=== PATIENT | female | born 1965 | race Caucasian/White ===

== ENCOUNTER 2016-10-27 10:15 | Outpatient (CLI) | payer BC ==
[2016-10-27 10:44] LABS: BASOPHILS % (AUTO) 0.5 % (0.0-2.0); DIFF TOTAL % 100 %; EOSINOPHILS % (AUTO) 0.3 % (0.0-6.0); HEMATOCRIT 50 % (33-45); HEMOGLOBIN 17.1 g/dL (11.5-14.8); LYMPHOCYTES # (AUTO) 2.3 /CMM (0.8-4.8); LYMPHOCYTES % (AUTO) 24.6 % (20.0-44.0); MEAN CORPUSCULAR HEMOGLOBIN 31 PG (26.0-33.0); MEAN CORPUSCULAR HGB CONC 34 g/dl (31.0-36.0); MEAN CORPUSCULAR VOLUME 90 fL (82-100); MONOCYTES # (AUTO) 0.6 /CMM (0.1-1.30); MONOCYTES % (AUTO) 6.2 % (2.0-12.0); NEUTROPHILS # (AUTO) 6.4 /CMM (1.8-8.9); NEUTROPHILS % (AUTO) 68.4 % (43.0-81.0); PLATELET COUNT (AUTO) 356 /CMM (150-450); RED BLOOD CELL COUNT(AUTO) 5.52 MIL/uL (4.0-5.2); WHITE BLOOD COUNT (AUTO) 9.4 K/uL (4.3-11.0)
[2016-10-27 10:52] LABS: KETONES,URINE NEGATIVE (NEGATIVE); LEUKOCYTE ESTERASE ,URINE NEGATIVE (NEGATIVE); PH,URINE 6.5 (5.0-8.0)
[2016-10-27 10:53] LABS: ADD UA MICROSCOPIC YES
[2016-10-27 10:55] LABS: ADD URINE CULTURE NO; WBC,URINE 0-2 /HPF (0-3)
[2016-10-27 10:59] LABS: ALBUMIN 4.8 g/dL (3.4-5.0); BILIRUBIN,TOTAL 0.8 mg/dL (0.2-1.0); CALCIUM, SERUM 9.8 mg/dL (8.5-10.1); CREATININE 1.1 mg/dL (0.6-1.3); TOTAL PROTEIN, SERUM 9.3 g/dL (6.4-8.2)
[2016-10-27 11:06] LABS: THYROID STIMULATING HORMONE 2.627 uIU/mL (0.358-3.74)
== END 2016-10-27 23:59 | disposition home or self-care (01) ==
LOC: LAB 10:15
PROVIDERS: ATTEND Internal Medicine
DX: R53.83 Other fatigue (principal)
CPT/HCPCS: 36415; 80053-TC; 81000-TC; 82670; 82746; 83001; 83002; 84144; 84439-TC; 84443-TC; 85025-TC

== ENCOUNTER → 2016-11-03 | Outpatient (CLI) | payer BC ==
[2016-11-03 09:11] LABS: KETONES,URINE NEGATIVE (NEGATIVE); LEUKOCYTE ESTERASE ,URINE NEGATIVE (NEGATIVE); PH,URINE 6.5 (5.0-8.0)
[2016-11-03 09:21] LABS: ADD UA MICROSCOPIC YES
[2016-11-03 09:23] LABS: ADD URINE CULTURE NO; WBC,URINE 0-2 /HPF (0-3)
== END ==
LOC: LAB 08:27
PROVIDERS: ATTEND Internal Medicine
DX: D89.2 Hypergammaglobulinemia, unspecified (principal); R31.9 Hematuria, unspecified
CPT/HCPCS: 81000-TC; 84155; 84156; 84165; 84166; 87086-TC

== ENCOUNTER 2016-11-08 09:45 | Outpatient (CLI) | payer BC ==
[2016-11-08 10:35] LABS: CREATININE 1.1 mg/dL (0.6-1.3)
== END 2016-11-08 23:59 | disposition home or self-care (01) ==
LOC: LAB 09:45
PROVIDERS: ATTEND Internal Medicine
DX: R31.9 Hematuria, unspecified (principal); M54.5 Low back pain
CPT/HCPCS: 36415; 82565-TC; 84520-TC

== ENCOUNTER → 2016-11-10 | Outpatient (CLI) | payer BC ==
[~2016-11-10] MED LIST: CT SWABBABLE VALVE TRANS SET 1 EA INFUS.SET MC ONE; IOHEXOL-300 100 ML VIAL IV ONE; IV NS 0.9% 250 ML IV ONE
== END ==
LOC: CT 09:05
PROVIDERS: ATTEND Internal Medicine
DX: K80.20 Calculus of gallbladder without cholecystitis without obstruction (principal); R31.9 Hematuria, unspecified; R07.81 Pleurodynia
CPT/HCPCS: 74178; J7050; Q9967

== ENCOUNTER 2017-01-05 11:35 | Outpatient (CLI) | payer BC ==
[2017-01-05 12:30] LABS: BASOPHILS % (AUTO) 0.5 % (0.0-2.0); EOSINOPHILS # (AUTO) 0.1 /CMM (0.0-0.7); EOSINOPHILS % (AUTO) 0.6 % (0.0-6.0); HEMATOCRIT 47 % (33-45); HEMOGLOBIN 16.2 g/dL (11.5-14.8); LYMPHOCYTES # (AUTO) 2.1 /CMM (0.8-4.8); LYMPHOCYTES % (AUTO) 23.2 % (20.0-44.0); MEAN CORPUSCULAR HEMOGLOBIN 31 PG (26.0-33.0); MEAN CORPUSCULAR HGB CONC 34 g/dl (31.0-36.0); MEAN CORPUSCULAR VOLUME 91 fL (82-100); MONOCYTES # (AUTO) 0.6 /CMM (0.1-1.30); MONOCYTES % (AUTO) 6.1 % (2.0-12.0); NEUTROPHILS # (AUTO) 6.4 /CMM (1.8-8.9); NEUTROPHILS % (AUTO) 69.6 % (43.0-81.0); PLATELET COUNT (AUTO) 359 /CMM (150-450); RED BLOOD CELL COUNT(AUTO) 5.22 MIL/uL (4.0-5.2); WHITE BLOOD COUNT (AUTO) 9.2 K/uL (4.3-11.0)
[2017-01-05 12:33] LABS: ALBUMIN 4.3 g/dL (3.4-5.0); BILIRUBIN,TOTAL 0.6 mg/dL (0.2-1.0); CALCIUM, SERUM 9.4 mg/dL (8.5-10.1); CREATININE 1.1 mg/dL (0.6-1.3); POTASSIUM 4.3 mmol/L (3.5-5.1); TOTAL PROTEIN, SERUM 8.4 g/dL (6.4-8.2)
[2017-01-05 12:37] LABS: INR 0.95 (0.87-1.13); PROTHROMBIN TIME 10.1 SECS (9.5-12.7)
[2017-01-05 12:55] LABS: APPEARANCE,URINE CLEAR (CLEAR); BILIRUBIN,URINE NEGATIVE (NEGATIVE); BLOOD, URINE 3+ Ery/uL (NEGATIVE); COLOR,URINE YELLOW (YELLOW); KETONES,URINE NEGATIVE (NEGATIVE); LEUKOCYTE ESTERASE ,URINE NEGATIVE (NEGATIVE); NITRITE, URINE NEGATIVE (NEGATIVE); PROTEIN,URINE NEGATIVE (NEGATIVE); UGLUCOSE NEGATIVE (NEGATIVE); UROBILINOGEN,URINE 0.2 EU/dL (0.2)
[2017-01-05 12:56] LABS: PREGNANCY TEST URINE QUAL NEGATIVE (NEGATIVE)
[2017-01-05 13:02] LABS: ADD URINE CULTURE NO; BACTERIA,URINE Rare /HPF (None Seen); RBC,URINE 21-50 /HPF (0-2); WBC,URINE 0-2 /HPF (0-3)
[2017-01-05 13:03] LABS: SQUAMOUS EPITHELIAL CELL,UR 0-2 /HPF (None Seen)
== END 2017-01-05 23:59 | disposition home or self-care (01) ==
LOC: LAB 11:35
PROVIDERS: ATTEND Internal Medicine
DX: Z01.818 Encounter for other preprocedural examination (principal); K80.20 Calculus of gallbladder without cholecystitis without obstruction
CPT/HCPCS: 36415; 71020-TC; 80053-TC; 81000-TC; 84703-TC; 85025-TC; 85730-TC

== ENCOUNTER 2017-01-12 05:50 | Inpatient (IN) | payer BC ==
[~2017-01-12] VITALS: Ht 157.5 cm; Wt 53.1 kg
[2017-01-12] MEDS ORDERED: BUPIVACAINE MPF W/EPI 0.25% 30 ML VIAL ONE (06:59)
[2017-01-12] MEDS ORDERED: BUPIVACAINE 0.25% 75 MG/30 ML VIAL ONE (07:00)
[2017-01-12] MEDS ORDERED: FENTANYL PF 250MCG/5ML AMPUL ONE (07:19)
[2017-01-12] MEDS ORDERED: SUCCINYLCHOLINE CHLORIDE 20 MG/ML VIAL ONE (07:19)
[2017-01-12] MEDS ORDERED: ROCURONIUM BROMIDE 50 MG/5 ML ONE (07:19)
[2017-01-12] MEDS ORDERED: IV LR 1000 ML 1,000 ML ONE (08:25)
[2017-01-12] MEDS ORDERED: IV SET PRIMARY 1 EA INFUS.SET MC ONE (08:25)
[2017-01-12] MEDS ORDERED: NEEDLELESS EST SET LARGE BORE 1 EA INFUS.SET MC ONE (08:25)
--- NOTE | 2017-01-12 09:00 | NUR ---
[facility] NOTES ADMITTED THIS 51 Y/O FEMALE PATIENT FROM RECOVERY, FOR S/P SURGICAL OBSERVATION. WITH ADMISSION DX: S/P GALLBLADDER REMOVAL (01/12/17 @ 07:30) TO RM # [id number]. IN STABLE CONDITION, ALERT, ORIENTED x4, NO SOB, NO PAIN, WITH UNCOMFORTABLE SENSATION AROUND ABDOMEN. FULL BODY ASSESSMENT DONE. VITAL SIGNS 127/70, 66, 100% RA, 97.8, 18. NOTED 3 SMALL LAPAROSCOPIC ABDOMINAL INCISION SITES WITH BRUISING, SKIN INTACT, WITHOUT DRESSING, DRY, NO DRAINAGE, REDNESS OR BLEEDING, NO S/SX INFECTION NOTED. IV PERIPHERAL LINE ON RIGHT HAND INTACT, PATENT, LAST BOWEL MOVEMENT 01/12/17, BEFORE SURGERY. KEPT COMFORTABLE, NEEDS MET IN TIMELY MANNER, WITH CALL LIGHT WITHIN EASY REACH. WILL CONTINUE TO MONITOR CLOSELY
--- NOTE | 2017-01-12 09:15 | NUR ---
RN NOTES VITAL SIGNS CHECKED: BP-110/70, P-68, R-18, T-97.9, 0/10 PAIN, 02-99%
--- NOTE | 2017-01-12 09:30 | NUR ---
RN NOTES BP-116/74, P-63, R-18, T-97.9, 0/10 PAIN, 02-100%
[2017-01-12] MEDS ORDERED: oxyCODONE/APAP (5/325 MG) 1 UDTAB TABLET PO PRN (10:00)
[2017-01-12] MEDS ORDERED: IV D5/0.45 NACL W/20 MEQ KCL 1L IV PRN ×2 (10:00)
[2017-01-12] MEDS ORDERED: MORPHINE SULFATE INJ 2 MG/ML DISP.SYRIN IV PRN (10:00)
[2017-01-12] MEDS ORDERED: ONDANSETRON HCL/PF 4 MG/2 ML VIAL IVP PRN ×2 (10:00→12:30)
[2017-01-12] MEDS ORDERED: MORPHINE SULFATE INJ 4 MG/ML DISP.SYRIN IV PRN (10:00)
--- NOTE | 2017-01-12 10:00 | NUR ---
RN NOTES VITAL SIGNS: BP-117/74, P-63, T-97.9, 02-100%, R-18, 0/10 PAIN
--- NOTE | 2017-01-12 11:00 | NUR ---
RN NOTES PHARMACY ([facility]) INFORMED DOCTOR ALLISON FOR PENICILLIN ALLERGY AND CROSS SENSITIVITY WITH ANCEF. PER DOCTOR TO PROCEED AND CANCEL REMAINING DOSES, WITHOUT ANY OTHER ANTIBIOTIC ORDER. NOTED, CARRIED OUT, PATIENT MADE AWARE
--- NOTE | 2017-01-12 11:00 | NUR ---
RN NOTES ASSISTED PATIENT TO WALK TO THE BATHROOM, NOTED URINE OUTPUT 600 CC, YELLOW CLEAR URINE, NO SEDIMENTS, NO ODOR. WILL CONTINUE TO MONITOR
--- NOTE | 2017-01-12 11:52 | NUR ---
RN NOTES BP-107/74, P-66, R-18, T-97.9, 0/10 PAIN, 02-100%
[2017-01-12] MEDS ORDERED: IV NS 0.9% 1,000 ML IV PRN (12:20)
[2017-01-12] MEDS ORDERED: HYDROCODONE/APAP 5/325MG 1 EACH TABLET PO PRN (12:30)
[2017-01-12] MEDS ORDERED: Z GUARD REMEDY 2 OZ OINT TP PRN (12:30)
[2017-01-12] MEDS ORDERED: MAGNESIUM HYDROXIDE 30 ML UDC PO PRN (12:30)
[2017-01-12] MEDS ORDERED: ENOXAPARIN SODIUM 40 MG/0.4 ML DISP.SYRIN SQ SCH (12:30)
[2017-01-12] MEDS ORDERED: ZOLPIDEM TARTRATE 5 MG TABLET PO PRN (12:30)
[2017-01-12] MEDS ORDERED: MAG HYDROX/AL HYDROX/SIMETH 30 ML UDC PO PRN (12:30)
[2017-01-12] MEDS ORDERED: ACETAMINOPHEN 325 MG TABLET PO PRN (12:30)
--- NOTE | 2017-01-12 14:17 | NUR ---
RN NOTES PATIENT IS IN STABLE CONDITION, VITAL SIGNS WITHIN NORMAL RANGE, NO PAIN, NO SOB, LUNCH TOLERATED WELL, NO S/SX NAUSEA, OR VOMITING, BOWEL SOUNDS PRESENT. ORDER RECEIVED FROM DR. PICKARD TO D/C HOME
--- NOTE | 2017-01-12 15:20 | NUR ---
[facility] NOTES DISCHARGED PATIENT HOME, WITH , WALKING, IN STABLE CONDITION, WITHOUT PAIN, NO SOB. VS: 127/81, 63, 20, 97.4, 98% RA, POST CHOLECYSTECTOMY CARE INSTRUCTION PROVIDED. ENCOURAGED TO VISIT DR. COOPER IN 1 WEEK
[2017-01-13] MEDS ORDERED: PANTOPRAZOLE 40 MG TABLET.DR PO SCH (07:30)
== END 2017-01-12 15:20 | disposition home or self-care (01) | DRG 419 ==
LOC: DS 05:50 → MED 09:36
PROVIDERS: ADMIT Internal Medicine; ATTEND Internal Medicine
PROC: 0FT44ZZ Resection of Gallbladder, Percutaneous Endoscopic Approach (ICD-10-PCS; principal; 2017-01-12 07:40)
DX: K80.20 Calculus of gallbladder without cholecystitis without obstruction (principal); K21.9 Gastro-esophageal reflux disease without esophagitis; M54.5 Low back pain; G89.29 Other chronic pain; E78.5 Hyperlipidemia, unspecified
CPT/HCPCS: 36415; 87081-TC; 88304-TC; 88305-TC; J0330; J1100; J1885; J2704; J2710; J3010; J3480; J3490; J7120; Z7610

== ENCOUNTER 2018-05-09 08:42 | Outpatient (CLI) | payer BC ==
[2018-05-09 12:06] LABS: BILIRUBIN,URINE NEGATIVE (NEGATIVE); BLOOD, URINE 2+ Ery/uL (NEGATIVE); COLOR,URINE YELLOW (YELLOW); KETONES,URINE NEGATIVE (NEGATIVE); LEUKOCYTE ESTERASE ,URINE NEGATIVE (NEGATIVE); NITRITE, URINE NEGATIVE (NEGATIVE); PROTEIN,URINE NEGATIVE (NEGATIVE); UGLUCOSE NEGATIVE (NEGATIVE); UROBILINOGEN,URINE 0.2 EU/dL (0.2)
[2018-05-09 12:08] LABS: BACTERIA,URINE Few /HPF (None Seen); WBC,URINE 0-2 /HPF (0-3)
[2018-05-09 12:09] LABS: APPEARANCE,URINE CLEAR (CLEAR)
[2018-05-09 12:19] LABS: BASOPHILS % (AUTO) 0.3 % (0.0-2.0); EOSINOPHILS % (AUTO) 0.2 % (0.0-6.0); HEMATOCRIT 44 % (33-45); HEMOGLOBIN 14.5 g/dL (11.5-14.8); LYMPHOCYTES # (AUTO) 1.8 /CMM (0.8-4.8); LYMPHOCYTES % (AUTO) 21.3 % (20.0-44.0); MEAN CORPUSCULAR HEMOGLOBIN 31 PG (26.0-33.0); MEAN CORPUSCULAR HGB CONC 33 g/dl (31.0-36.0); MEAN CORPUSCULAR VOLUME 93 fL (82-100); MONOCYTES # (AUTO) 0.6 /CMM (0.1-1.30); MONOCYTES % (AUTO) 6.8 % (2.0-12.0); NEUTROPHILS % (AUTO) 71.4 % (43.0-81.0); PLATELET COUNT (AUTO) 302 /CMM (150-450); RDW COEFFICIENT OF VARIATION 12.8 (11.5-15.0); RED BLOOD CELL COUNT(AUTO) 4.68 MIL/uL (4.0-5.2); WHITE BLOOD COUNT (AUTO) 8.4 K/uL (4.3-11.0)
[2018-05-09 12:23] LABS: ALBUMIN 3.9 g/dL (3.4-5.0); BILIRUBIN,TOTAL 0.9 mg/dL (0.2-1.0); CALCIUM, SERUM 9.2 mg/dL (8.5-10.1); CREATININE 1.1 mg/dL (0.6-1.3); POTASSIUM 5.4 mmol/L (3.5-5.1); TOTAL PROTEIN, SERUM 7.5 g/dL (6.4-8.2)
[2018-05-09 12:47] LABS: URIC ACID 5.5 mg/dL (2.6-7.2)
== END 2018-05-09 23:59 | disposition home or self-care (01) ==
LOC: LAB 08:42
PROVIDERS: ATTEND Internal Medicine
DX: Z00.01 Encounter for general adult medical examination with abnormal findings (principal); Z13.220 Encounter for screening for lipoid disorders; M65.321 Trigger finger, right index finger; R31.29 Other microscopic hematuria
CPT/HCPCS: 36415; 80053-TC; 80061-TC; 81000-TC; 82306; 82746; 84550-TC; 85025-TC

== ENCOUNTER 2018-08-14 08:35 | Outpatient (CLI) | payer BC ==
[2018-08-14 09:25] LABS: CALCIUM, SERUM 9.5 mg/dL (8.5-10.1); CREATININE 1.1 mg/dL (0.6-1.3); POTASSIUM 4.6 mmol/L (3.5-5.1)
[2018-08-14 09:31] LABS: BASOPHILS # (AUTO) 0.1 /CMM (0.0-0.2); BASOPHILS % (AUTO) 0.9 % (0.0-2.0); EOSINOPHILS % (AUTO) 1.5 % (0.0-6.0); HEMATOCRIT 47 % (33-45); LYMPHOCYTES # (AUTO) 1.7 /CMM (0.8-4.8); LYMPHOCYTES % (AUTO) 24.2 % (20.0-44.0); MEAN CORPUSCULAR HGB CONC 34 g/dl (31.0-36.0); MEAN CORPUSCULAR VOLUME 93 fL (82-100); MONOCYTES # (AUTO) 0.5 /CMM (0.1-1.30); MONOCYTES % (AUTO) 7.7 % (2.0-12.0); NEUTROPHILS # (AUTO) 4.5 /CMM (1.8-8.9); NEUTROPHILS % (AUTO) 65.7 % (43.0-81.0); PLATELET COUNT (AUTO) 333 /CMM (150-450); RED BLOOD CELL COUNT(AUTO) 5.05 MIL/uL (4.0-5.2); WHITE BLOOD COUNT (AUTO) 6.9 K/uL (4.3-11.0)
[2018-08-15 08:11] LABS: CANCER AG, 125 16.9 U/mL (0.0-38.1)
== END 2018-08-14 23:59 | disposition home or self-care (01) ==
LOC: LAB 08:35
PROVIDERS: ATTEND Obstetrics & Gynecology
DX: R68.89 Other general symptoms and signs (principal); R97.0 Elevated carcinoembryonic antigen [CEA]
CPT/HCPCS: 36415; 80048-TC; 82378; 85025-TC; 86304; 87045-TC; 87177; 87209

== ENCOUNTER 2019-02-13 15:56 | Outpatient (CLI) | payer BC | END 2019-02-13 23:59 | disposition home or self-care (01) | LOC: MRI 15:56 | DX: M16.11 Unilateral primary osteoarthritis, right hip (principal) | CPT/HCPCS: 73721-TC ==

== ENCOUNTER 2019-06-05 07:49 | Outpatient (CLI) | payer BC ==
[2019-06-05 08:43] LABS: BASOPHILS % (AUTO) 0.7 % (0.0-2.0); EOSINOPHILS % (AUTO) 2.9 % (0.0-6.0); HEMATOCRIT 46 % (33-45); HEMOGLOBIN 15.5 g/dL (11.5-14.8); LYMPHOCYTES # (AUTO) 1.9 /CMM (0.8-4.8); LYMPHOCYTES % (AUTO) 33.6 % (20.0-44.0); MEAN CORPUSCULAR HGB CONC 34 g/dl (31.0-36.0); MEAN CORPUSCULAR VOLUME 94 fL (82-100); MONOCYTES # (AUTO) 0.4 /CMM (0.1-1.30); MONOCYTES % (AUTO) 7.5 % (2.0-12.0); NEUTROPHILS # (AUTO) 3.2 /CMM (1.8-8.9); NEUTROPHILS % (AUTO) 55.3 % (43.0-81.0); PLATELET COUNT (AUTO) 311 /CMM (150-450); RED BLOOD CELL COUNT(AUTO) 4.89 MIL/uL (4.0-5.2); WHITE BLOOD COUNT (AUTO) 5.7 K/uL (4.3-11.0)
[2019-06-05 08:56] LABS: ALBUMIN 4.1 g/dL (3.4-5.0); BILIRUBIN,TOTAL 0.8 mg/dL (0.2-1.0); POTASSIUM 4.2 mmol/L (3.5-5.1); TOTAL PROTEIN, SERUM 8.4 g/dL (6.4-8.2)
[2019-06-05 08:57] LABS: APPEARANCE,URINE Clear (CLEAR); BILIRUBIN,URINE Negative (NEGATIVE); BLOOD, URINE Moderate Ery/uL (NEGATIVE); COLOR,URINE Yellow (YELLOW); KETONES,URINE Negative (NEGATIVE); LEUKOCYTE ESTERASE ,URINE Negative (NEGATIVE); NITRITE, URINE Negative (NEGATIVE); PH,URINE 7.5 (5.0-8.0); PROTEIN,URINE Negative (NEGATIVE); UGLUCOSE Negative (NEGATIVE); UROBILINOGEN,URINE 0.2 EU/dL (0.2)
[2019-06-05 09:06] LABS: THYROID STIMULATING HORMONE 2.425 uIU/mL (0.358-3.74)
[2019-06-05 09:15] LABS: BACTERIA,URINE Few /HPF (None Seen); SQUAMOUS EPITHELIAL CELL,UR Few /HPF (None Seen); WBC,URINE 0-2 /HPF (0-3)
[2019-06-06 04:11] LABS: T3 TOTAL 122 ng/dL (71-180)
== END 2019-06-05 23:59 | disposition home or self-care (01) ==
LOC: LAB 07:49
DX: Z00.00 Encounter for general adult medical examination without abnormal findings (principal)
CPT/HCPCS: 36415; 80053-TC; 80061-TC; 81000-TC; 82306; 82728-TC; 83540-TC; 83735-TC; 84439-TC; 84443-TC; 84480; 85025-TC; 86337

== ENCOUNTER 2019-10-11 18:03 | Emergency (ER) | payer BC ==
[~2019-10-11] VITALS: Ht 152.4 cm; Wt 59.0 kg
[2019-10-11 18:17] VITALS: BP 125/70
--- NOTE | 2019-10-11 18:30 | NUR ---
RAPID INFLUENZA OBTAINED AND SENT TO LAB.
--- NOTE | 2019-10-11 18:35 | NUR ---
AGING BOX HAND AT BEDSIDE FOR XRAY.
== END 2019-10-11 19:53 | disposition home or self-care (01) ==
LOC: ER 18:10
DX: J10.1 Influenza due to other identified influenza virus with other respiratory manifestations (principal); Z88.0 Allergy status to penicillin
CPT/HCPCS: 71045-TC

== ENCOUNTER 2019-10-17 07:45 | Outpatient (CLI) | payer BC | END 2019-10-17 23:59 | disposition home or self-care (01) | LOC: RAD 07:45 | DX: J81.1 Chronic pulmonary edema (principal) | CPT/HCPCS: 71045-TC ==